=== PATIENT | female | born 1985 | race Caucasian/White ===

== ENCOUNTER → 2023-10-05 09:02 | Outpatient (REF) | payer BC, SELFPAY ==
[2023-10-05 10:24] LABS: % Basophils 0.7 % (0-2); % Eosinophils 0.7 % (0-6); % Immature Granulocytes 0.3 % (0-0.5); % Lymphocytes 37.7 % (20.5-51.1); % Monocytes 9.1 % (1.7-9.3); % Neutrophils 51.5 % (42.2-75.2); Absolute Lymphocytes 1.1 10^3/uL (1.2-3.4); Absolute Monocytes 0.3 10^3/uL (0.1-0.6); Absolute Neutrophils 1.5 10^3/uL (1.4-6.5); Hematocrit 33.1 % (37.0-47.0); Hemoglobin 9.4 g/dL (12.0-16.0); Mean Corp Hgb Conc. 28.4 g/dL (33.0-37.0); Mean Corpuscular Volume 73.9 fL (81.0-99.0); Mean Platelet Volume 10.7 fL (7.4-10.4); Nucleated Red Blood Cells % 0 %; Platelet Count 249 10^3/uL (130-400); Red Blood Cell Count 4.48 10^6/uL (4.20-5.40); Red Cell Dist. Width 17.6 % (11.5-14.5)
[2023-10-05 11:31] LABS: Normal RBC Morphology No
[2023-10-05 11:32] LABS: Anisocytosis Slight; Macrocytosis Slight; Ovalocytes FEW; Target Cells FEW
[2023-10-05 11:33] LABS: Microcytosis Slight
[2023-10-05 20:45] LABS: Beta HCG Quantitative < 2.39 mIU/ml; FSH 3.1 mIU/ml; Luteinizing Hormone 1.86 mIU/ml; Prolactin 11.1 ng/ml (3.0-18.6)
[2023-10-05 21:00] LABS: TSH Reflex To Free T4 0.99 uIU/ml (0.47-4.68)
[2023-10-05 21:01] LABS: Estradiol 82.1 pg/ml
== END ==
LOC: REG 09:02
PROVIDERS: ATTENDING PHYSICIAN Obstetrics & Gynecology; FAMILY PHYSICIAN Internal Medicine
DX: N92.4 Excessive bleeding in the premenopausal period (principal)
CPT/HCPCS: 36415; 82670; 83001; 83002; 84146; 84443; 84702; 85025

== ENCOUNTER → 2023-10-26 12:13 | Outpatient (REF) | payer BC, SELFPAY | LOC: RAD 12:13 | PROVIDERS: ATTENDING PHYSICIAN Obstetrics & Gynecology; FAMILY PHYSICIAN Internal Medicine | DX: N92.4 Excessive bleeding in the premenopausal period (principal); Z12.31 Encounter for screening mammogram for malignant neoplasm of breast | CPT/HCPCS: 76830; 76856; 77063; 77067 ==

== ENCOUNTER → 2023-11-16 08:59 | Outpatient (REF) | payer BC, SELFPAY | LOC: WDC 08:59 | PROVIDERS: ATTENDING PHYSICIAN Obstetrics & Gynecology; FAMILY PHYSICIAN Internal Medicine | DX: R92.8 Other abnormal and inconclusive findings on diagnostic imaging of breast (principal) | CPT/HCPCS: 76642 ==

== ENCOUNTER → 2023-11-30 11:01 | Outpatient (REF) | payer BC, SELFPAY ==
--- NOTE | 2023-11-30 13:26 | OID.BR.INTR ---
[facility] Breast Navigator - Initial
- -
Date of Contact: 11/30/23
Met with patient. Patient given written information on navigator services and support services available at [facility]. Will follow up as needed per protocol.
== END ==
LOC: WDC 11:01
PROVIDERS: ATTENDING PHYSICIAN Obstetrics & Gynecology; FAMILY PHYSICIAN Internal Medicine
DX: N63.14 Unspecified lump in the right breast, lower inner quadrant (principal)
CPT/HCPCS: 88305; 19083; 77065; A4648

== ENCOUNTER → 2023-12-15 08:57 | Outpatient (REF) | payer BC, SELFPAY ==
[2023-12-15 10:47] LABS: INR 1.04; PT 13.4 Sec (11.4-14.6)
[2023-12-15 10:48] LABS: APTT 27.4 Sec (23.4-35.0)
[2023-12-15 11:08] LABS: Iron 35 ug/dl (37-170); LDH 192 U/L (120-246)
[2023-12-15 11:18] LABS: Percent Saturation 7 % (20-50); Total Iron Binding Capacity 440 ug/dl (265-497)
[2023-12-15 11:23] LABS: Vitamin D, 25-OH*** 44.6 ng/mL (30-80)
[2023-12-15 11:41] LABS: Ferritin 4.4 ng/ml (6.24-137)
[2023-12-15 12:13] LABS: Vitamin B12 269 pg/ml (239-931)
[2023-12-15 13:09] LABS: Erythrocyte Sed Rate 11 mm/hour (0-20)
[2023-12-15 13:26] LABS: % Basophils 0.6 % (0-2); % Eosinophils 0.9 % (0-6); % Immature Granulocytes 0.3 % (0-0.5); % Lymphocytes 45.7 % (20.5-51.1); % Monocytes 9.1 % (1.7-9.3); % Neutrophils 43.4 % (42.2-75.2); Absolute Lymphocytes 1.5 10^3/uL (1.2-3.4); Absolute Monocytes 0.3 10^3/uL (0.1-0.6); Absolute Neutrophils 1.4 10^3/uL (1.4-6.5); Hematocrit 33.5 % (37.0-47.0); Hemoglobin 9.4 g/dL (12.0-16.0); Mean Corp Hgb Conc. 28.1 g/dL (33.0-37.0); Mean Corpuscular Hgb 20.6 pg (27.0-31.0); Mean Corpuscular Volume 73.5 fL (81.0-99.0); Mean Platelet Volume 10.5 fL (7.4-10.4); Nucleated Red Blood Cells % 0 %; Platelet Count 272 10^3/uL (130-400); Red Blood Cell Count 4.56 10^6/uL (4.20-5.40); Red Cell Dist. Width 18.9 % (11.5-14.5); Reticulocyte Count 1.7 % (0.4-2.8); White Blood Cell Count 3.3 10^3/uL (4.8-10.8)
[2023-12-16 11:33] LABS: Haptoglobin 104 mg/dL (30-200)
[2023-12-16 21:23] LABS: Copper, Serum 122.2 ug/dL (80.0-155.0)
[2023-12-17 21:02] LABS: Neutrophil-Associated Abs Negative (Negative)
== END ==
LOC: REG 08:57
PROVIDERS: ATTENDING PHYSICIAN Internal Medicine Hematology & Oncology; FAMILY PHYSICIAN Internal Medicine
DX: D50.0 Iron deficiency anemia secondary to blood loss (chronic) (principal)
CPT/HCPCS: 36415; 82306; 82525; 82607; 82728; 82746; 83010; 83540; 83550; 83615; 85025; 85045; 85240; 85245; 85246; 85247; 85610; 85652; 85730; 86021; 86880

== ENCOUNTER → 2024-03-14 12:36 | Outpatient (REF) | payer BC, SELFPAY ==
[2024-03-14 14:15] LABS: % Basophils 0.4 % (0-2); % Eosinophils 0.4 % (0-6); % Immature Granulocytes 0.2 % (0-0.5); % Lymphocytes 35.9 % (20.5-51.1); % Monocytes 6.2 % (1.7-9.3); % Neutrophils 56.9 % (42.2-75.2); Absolute Lymphocytes 1.9 10^3/uL (1.2-3.4); Absolute Monocytes 0.3 10^3/uL (0.1-0.6); Hematocrit 41.8 % (37.0-47.0); Hemoglobin 14.1 g/dL (12.0-16.0); Mean Corp Hgb Conc. 33.7 g/dL (33.0-37.0); Mean Corpuscular Hgb 30.9 pg (27.0-31.0); Mean Corpuscular Volume 91.7 fL (81.0-99.0); Mean Platelet Volume 10.2 fL (7.4-10.4); Nucleated Red Blood Cells % 0 %; Platelet Count 183 10^3/uL (130-400); Red Blood Cell Count 4.56 10^6/uL (4.20-5.40); Red Cell Dist. Width 14.7 % (11.5-14.5); White Blood Cell Count 5.2 10^3/uL (4.8-10.8)
[2024-03-14 14:52] LABS: Iron 152 ug/dl (37-170)
[2024-03-14 15:01] LABS: Percent Saturation 61 % (20-50); Total Iron Binding Capacity 248 ug/dl (265-497)
[2024-03-14 15:37] LABS: Ferritin 92.9 ng/ml (6.24-137)
[2024-03-15 12:46] LABS: Folate 12.1 ng/ml (2.76-20); Vitamin B12 230 pg/ml (239-931)
== END ==
LOC: REG 12:36
PROVIDERS: ATTENDING PHYSICIAN Internal Medicine Hematology & Oncology; FAMILY PHYSICIAN Internal Medicine
DX: D50.0 Iron deficiency anemia secondary to blood loss (chronic) (principal)
CPT/HCPCS: 36415; 82607; 82728; 82746; 83540; 83550; 85025

== ENCOUNTER → 2024-10-01 07:36 | Outpatient (REF) | payer BC, SELFPAY ==
[2024-10-01 09:18] LABS: % Basophils 0.6 % (0-2); % Eosinophils 0.6 % (0-6); % Immature Granulocytes 0.3 % (0-0.5); % Lymphocytes 45.2 % (20.5-51.1); % Monocytes 6.6 % (1.7-9.3); % Neutrophils 46.7 % (42.2-75.2); Absolute Lymphocytes 1.6 10^3/uL (1.2-3.4); Absolute Monocytes 0.2 10^3/uL (0.1-0.6); Absolute Neutrophils 1.6 10^3/uL (1.4-6.5); Hematocrit 44.1 % (37.0-47.0); Hemoglobin 14.9 g/dL (12.0-16.0); Mean Corp Hgb Conc. 33.8 g/dL (33.0-37.0); Mean Corpuscular Hgb 32.7 pg (27.0-31.0); Mean Corpuscular Volume 96.7 fL (81.0-99.0); Mean Platelet Volume 10.3 fL (7.4-10.4); Nucleated Red Blood Cells % 0 %; Platelet Count 179 10^3/uL (130-400); Red Blood Cell Count 4.56 10^6/uL (4.20-5.40); Red Cell Dist. Width 12.2 % (11.5-14.5); White Blood Cell Count 3.5 10^3/uL (4.8-10.8)
[2024-10-01 09:41] LABS: Iron 140 ug/dl (37-170)
[2024-10-01 09:57] LABS: Percent Saturation 59 % (20-50); Total Iron Binding Capacity 237 ug/dl (265-497)
[2024-10-01 10:12] LABS: Ferritin 89.9 ng/ml (6.24-137)
[2024-10-01 11:07] LABS: Folate 10.7 ng/ml (2.76-20); Vitamin B12 314 pg/ml (239-931)
== END ==
LOC: REG 07:36
PROVIDERS: ATTENDING PHYSICIAN Nurse Practitioner Adult Health
DX: D50.0 Iron deficiency anemia secondary to blood loss (chronic) (principal); E53.9 Vitamin B deficiency, unspecified
CPT/HCPCS: 36415; 82607; 82728; 82746; 83540; 83550; 85025

== ENCOUNTER → 2025-01-17 11:34 | Outpatient (REF) | payer BC, SELFPAY ==
[2025-01-17 12:05] LABS: Hematocrit 44.5 % (37.0-47.0); Hemoglobin 14.8 g/dL (12.0-16.0); Mean Corp Hgb Conc. 33.3 g/dL (33.0-37.0); Mean Corpuscular Volume 97.2 fL (81.0-99.0); Nucleated Red Blood Cells % 0 %; Platelet Count 187 10^3/uL (130-400); Red Cell Dist. Width 12.3 % (11.5-14.5)
[2025-01-17 12:44] LABS: Iron 130 ug/dl (37-170)
[2025-01-17 12:54] LABS: Total Iron Binding Capacity 278 ug/dl (265-497)
[2025-01-17 14:10] LABS: Folate 12.3 ng/ml (2.76-20); Vitamin B12 305 pg/ml (239-931)
[2025-01-18 11:42] LABS: tTG IgA Antibody 2.9 EU/ml (0-19); tTG IgG Antibody 30.8 EU/ml (0-19)
== END ==
LOC: REG 11:34
PROVIDERS: ATTENDING PHYSICIAN Nurse Practitioner Adult Health; FAMILY PHYSICIAN Internal Medicine
DX: D50.0 Iron deficiency anemia secondary to blood loss (chronic) (principal); E53.9 Vitamin B deficiency, unspecified
CPT/HCPCS: 36415; 82607; 82746; 82784; 83516; 83540; 83550; 83921; 85025; 86231; 86340

== ENCOUNTER → 2025-02-08 08:54 | Outpatient (REF) | payer BC, SELFPAY | LOC: REG 08:54 | PROVIDERS: ATTENDING PHYSICIAN Internal Medicine | DX: E53.8 Deficiency of other specified B group vitamins (principal) | CPT/HCPCS: 36415; 83516 ==

== ENCOUNTER → 2025-04-25 10:19 | Outpatient (REF) | payer BC, SELFPAY ==
[2025-04-25 11:15] LABS: Hematocrit 44.5 % (37.0-47.0); Hemoglobin 14.9 g/dL (12.0-16.0); Mean Corp Hgb Conc. 33.5 g/dL (33.0-37.0); Mean Corpuscular Volume 97.8 fL (81.0-99.0); Nucleated Red Blood Cells % 0 %; Platelet Count 183 10^3/uL (130-400); Red Cell Dist. Width 12.0 % (11.5-14.5)
[2025-04-25 11:47] LABS: Iron 120 ug/dl (37-170)
[2025-04-25 11:57] LABS: Total Iron Binding Capacity 265 ug/dl (265-497)
[2025-04-25 12:21] LABS: Ferritin 95.9 ng/ml (6.24-137)
[2025-04-25 12:35] LABS: Vitamin B12 414 pg/ml (239-931)
== END ==
LOC: REG 10:19
PROVIDERS: ATTENDING PHYSICIAN Nurse Practitioner Adult Health; FAMILY PHYSICIAN Internal Medicine
DX: D50.0 Iron deficiency anemia secondary to blood loss (chronic) (principal); D53.9 Nutritional anemia, unspecified
CPT/HCPCS: 36415; 82607; 82728; 83540; 83550; 85025